=== PATIENT | female | born 2000 | race Caucasian/White ===

== ENCOUNTER 2021-12-27 12:59 | Emergency (ER) | payer BC, SELFPAY ==
[2021-12-27] VITALS (7 sets, daily range): BP systolic 106–122; BP diastolic 50–72; PULSE 77–88; RESP 14–18; TEMP 36.5; O2SAT 96–99; BMI 29.0
--- NOTE | 2021-12-27 13:22 | W.ED.ABDPA2 ---
HPI - Abdominal Pain General: Chief Complaint: Abdominal Pain Stated Complaint: abd pain Time Seen by Provider: 12/27/21 13:22 History of Present Illness: Ms. Green is a 21-year-old lady with history of known periumbilical hernia who presents to the emergency department due to abdominal pain. She reports longstanding history approximately 1 year of intermittent mild pain associated with hernia however over the past few hours this morning pain is more Constant. There is some radiation to the back. Quality is aching. Intensity is moderate. Course has persisted. Associated with nausea but no vomiting. Last bowel movement normal approximately 2 hours ago. No urinary symptoms. Last menstrual period last month. No other specific changes in health, exacerbating, or alleviating factors identified. Onset (ago): hour(s) Pain Consistency: constant Severity: moderate Quality: aching Context: history of similar episodes Related Data: Date of Last Menstrual Period: 12/17/21 Review of Systems General: Reports: 10 or more systems reviewed and unremarkable except in HPI and below PFSH ED PFSH: Medical History (Updated 01/06/22 @ 20:33 by Raymond Nicole MD) No significant past medical history Surgical History (Updated 01/06/22 @ 20:33 by Raymond Nicole MD) No significant past surgical history Female Reproductive History: Date of last menstrual period: 12/17/21 Physical Exam Const: COMMON NORMALS: alert GENERAL APPEARANCE: cooperative and well developed HENMT: COMMON NORMALS: normocephalic and atraumatic HEAD & SCALP: normocephalic and atraumatic Eye: COMMON NORMALS: conjunctivae normal CONJUNCTIVA: Yes conjunctivae normal SCLERA: sclerae normal Neck/C-Spine: COMMON NORMALS: supple GENERAL: Yes trachea midline Resp: COMMON NORMALS: normal respiratory effort EFFORT & INSPECTION: Yes able to speak in complete sentences Cardio: COMMON NORMALS: regular rate and regular rhythm RATE: regular rate RHYTHM: regular rhythm GI: COMMON NORMALS: Soft to palpation PALPATION: Yes Soft to palpation, Yes Tenderness to palpation present (GI), No Guarding due to palpation present (GI), No Rigid due to palpation and Yes Hernia present umbilical PERCUSSION: normal to percussion : EXTERNAL FEMALE EXAM: Yes Hernia present Extremity: GENERAL: Yes normal exam except as noted and No edema Neuro: COMMON NORMALS: moves all extremities SENSORIUM/ORIENTATION: Yes alert and No Orientation impaired Psych: COMMON NORMALS: mental status grossly normal and Normal thought process present THOUGHT PROCESS: Normal thought process present Course ED course: - Patient was seen and evaluated by me at bedside - Patient placed on cardiac monitors, IV access obtained - Initial evaluation notable for exam as above - Labs personally interpreted by me -Analgesia given - Labs notable for leukocytosis, normal hemoglobin. Metabolic panel without acute electrolyte derangement, mild transaminitis noted. Urinalysis not concerning for urinary tract infection. - Imaging notable for fat-containing umbilical and midline hernias without evidence of bowel obstruction or involvement. Additionally patient has cholelithiasis without definite wall thickening. There is also intra and extrahepatic ductal dilation. Ultrasound without evidence of cholecystitis however still shows ductal dilation and cholelithiasis. Given possibility of choledocholithiasis MRCP felt to be warranted. MRCP negative for biliary filling defect. - Discussed with general surgery who thinks that likely etiology is gallstones which are being passed through the biliary system without evidence of acute obstruction, no indication for hospitalization or acute surgical management, plan to have outpatient surgical follow-up -Patient already has a surgeon outside of our system who she wishes to follow-up with and previously planned surgery for hernias with - Upon serial reexamination after treatment the patient was improved - Based on patient history, evaluation, and testing as interpreted the most likely cause of the patient's condition is symptomatic cholelithiasis - The results of ED evaluation were discussed with the patient including prescriptions and/or symptomatic cares (if applicable) including appropriate and responsible use, followup plan, and return precautions. The patient verbalized understanding and felt safe for discharge. - Patient discharged in satisfactory condition. Note: Click bubbles or prepopulated coreas in note writing are used for assistance with data collection and billing and are inherently more limited than narrative and other text portions of this note. Please use narrative for additional clinical history and defer to narrative/free test for any case of contradictory information. If information appears in only free text or click bubble it should be considered present or absent as reported. Please contact note senior copywriter for clarifications of clinical information or contradictory information. MDM is a brief summary, contradictory or erroneous seeming information should be clarified and full note should be reviewed. Vital Signs: Vital signs: Vital Signs Temperature 97.7 F 12/27/21 13:07 Pulse Rate 88 12/27/21 19:00 Respiratory Rate 18 12/27/21 19:29 Blood Pressure 121/66 12/27/21 19:29 Pulse Oximetry 99 12/27/21 19:00 MDM - Abdominal Pain Medical Decision Making 21-year-old lady with history of umbilical hernia presenting with more constant pain concerning for incarceration. Patient found to have fat-containing hernias on CT. She does have evidence of cholelithiasis and further investigation required for biliary ductal dilation. No choledocholithiasis, patient may be passing small stones through the biliary system. Discussed with general surgery and outpatient follow-up is appropriate. Satisfactory for outpatient management with strict return precautions. Medical Records I reviewed the patient's medical records. Lab Data I reviewed the patient's lab results. : 12/27/21 13:32 12/27/21 14:31 Labs/Radiology: Radiology Impressions Abdomen/Pelvis CT 12/27/21 13:32 IMPRESSION: 1. Cholelithiasis without definite gallbladder wall thickening. There is intra and extrahepatic biliary ductal dilatation. No definite obstructive stone or lesion is appreciated. Recommend ultrasound to further assess. 2. Fat containing umbilical and midline anterior epigastric hernias. 3. Hepatomegaly. 4. Cardiomegaly. 5. Small simple left ovarian cyst. Abdomen Ultrasound 12/27/21 15:00 IMPRESSION: Cholelithiasis with ductal dilatation. No evidence for gallbladder wall thickening or pericholecystic fluid. Cholangiopancreatography MRI 12/27/21 16:48 IMPRESSION: There are multiple small stones in the gallbladder with intrahepatic and extrahepatic ductal dilatation. No biliary filling defects are seen. Laboratory Results WBC 16.1 10^3/uL (4.0-10.0) H 12/27/21 13:32 RBC 4.62 10^6/uL (4.1-5.3) 12/27/21 13:32 Hgb 13.8 g/dL (11.5-15.3) 12/27/21 13:32 Hct 42.5 % (37.0-47.0) 12/27/21 13:32 MCV 92.0 fl (81-99) 12/27/21 13:32 MCH 29.9 pg (28.0-34.0) 12/27/21 13:32 MCHC 32.5 g/dL (30.0-36.0) 12/27/21 13:32 RDW 14.4 % (12.1-15.1) 12/27/21 13:32 Plt Count 326 10^3/cmm (130-400) 12/27/21 13:32 MPV 10.7 fL (7.4-10.4) H 12/27/21 13:32 Neut % (Auto) 80.7 % 12/27/21 13:32 Lymph % (Auto) 12.9 % 12/27/21 13:32 [place] % (Auto) 5.2 % 12/27/21 13:32 Eos % (Auto) 0.4 % 12/27/21 13:32 Baso % (Auto) 0.4 % 12/27/21 13:32 Neut # (Auto) 12.97 10^3/uL (1.8-7.7) H 12/27/21 13:32 Lymph # (Auto) 2.1 10^3/uL (0.8-4.8) 12/27/21 13:32 [place] # (Auto) 0.8 10^3/uL (0.2-0.9) 12/27/21 13:32 Eos # (Auto) 0.1 10^3/uL (0.0-0.8) 12/27/21 13:32 Baso # (Auto) 0.1 10^3/uL (0.0-0.1) 12/27/21 13:32 Nucleated RBC % (auto) 0 % 12/27/21 13:32 Nucleated RBCs # 0.0 /100WBC 12/27/21 13:32 Sodium 136 mmol/L (136-145) 12/27/21 14:31 Potassium 3.9 mmol/L (3.5-5.1) 12/27/21 14:31 Chloride 102 mmol/L (98-107) 12/27/21 14:31 Carbon Dioxide 24 mmol/L (22-29) 12/27/21 14:31 Anion Gap 13.9 (5-19) 12/27/21 14:31 BUN 17 mg/dL (6-20) 12/27/21 14:31 Creatinine 0.4 mg/dL (0.5-0.9) L 12/27/21 14:31 GFR Calculation 197.8 mL/min (90-130) H 12/27/21 14:31 Glucose 115 mg/dL (65-115) 12/27/21 14:31 Calculated Osmolality 284 mOsm/kg (285-295) L 12/27/21 14:31 Calcium 8.1 mg/dL (8.5-10.5) L 12/27/21 14:31 Total Bilirubin 0.4 mg/dL (0.15-1.2) 12/27/21 14:31 AST 116 U/L (0-32) H 12/27/21 14:31 ALT 61 U/L (0-33) H 12/27/21 14:31 Alkaline Phosphatase 95 IU/L (35-105) 12/27/21 14:31 Total Protein 7.1 g/dL (6.6-8.7) 12/27/21 14:31 Albumin 3.8 g/dL (3.5-5.2) 12/27/21 14:31 Globulin 3.3 g/dL (1.3-4.6) 12/27/21 14:31 Lipase 26 U/L (13-60) 12/27/21 14:31 HCG, Qual Negative (Negative) 12/27/21 13:42 Urine Color Yellow (Yellow) 12/27/21 13:42 Urine Appearance Sl hazy (CLEAR) 12/27/21 13:42 Urine pH 7 (5-7) 12/27/21 13:42 Ur Specific [place] 1.010 (1.005-1.030) 12/27/21 13:42 Urine Protein Neg (Negative) 12/27/21 13:42 Urine Glucose (UA) Norm (Normal) 12/27/21 13:42 Urine Ketones Negative (Negative) 12/27/21 13:42 Urine Blood Neg (Negative) 12/27/21 13:42 Urine Nitrate Negative (Negative) 12/27/21 13:42 Urine Bilirubin Neg (Negative) 12/27/21 13:42 Urine Urobilinogen 1 mg/dL (Negative) H 12/27/21 13:42 Ur Leukocyte Esterase Negative (Negative) 12/27/21 13:42 Discharge Plan Discharge Patient Disposition: Home Clinical Impression: Abdominal pain, Cholelithiasis, Leukocytosis, Transaminitis, Dilation of common bile duct, Fatty liver, Hernia of abdominal wall Condition: Stable Prescriptions: New oxycodone 5 mg tablet 5 mg PO Q4H PRN (Reason: pain) Qty: 10 0RF ondansetron 4 mg tablet,disintegrating 4 mg PO TID PRN (Reason: nausea and vomiting) Qty: 15 0RF No Action sertraline 50 mg tablet 50 mg PO DAILY 0RF Discharge Orders: Discharge ED (Routine); Ordered 12/27/21 Ordered By: Raymond Nicole Discharge Diet: Advance as tolerated and Clear Liquid Discharge Activity: Increase activity as tolerated Patient Instructions: Gallstones (ED), Abdominal Pain (ED), Ventral Hernia (ED), Opioid Safety Activity Restrictions/Additional Instructions: Thank you for visiting the emergency department. You were seen and evaluated for abdominal pain. The exact cause of your symptoms is unclear as discussed. The hernia is currently only contained fat which can cause pain however do not require acute surgical intervention. You do have gallstones though no evidence of infection of the gallbladder (cholecystitis). You do have dilation of the ducts which is abnormal and may be related to passing stones. Please follow-up with your primary care provider and surgeon. I recommend repeat labs for reevaluation of elevated white blood cell count and elevated liver enzymes within 1 week. Please return to the emergency department for worsening symptoms, persistent nausea or vomiting, right upper quadrant pain, fevers, changes in ability to have bowel movements, or anything else that you are concerned about and feel needs emergency department evaluation. Coding Level of Care Code ED Linen Folder for Lilli Barrett
--- NOTE | 2021-12-27 13:32 | CTR_ITS ---
PROCEDURE INFORMATION: Exam: CT Abdomen And Pelvis With Contrast Exam date and time: 12/27/2021 2:06 PM Age: 21 years old Clinical indication: Generalized abdominal pain. Periumbilical hernia with constant pain for 1 day. TECHNIQUE: Imaging protocol: Computed tomography of the abdomen and pelvis with contrast. Radiation optimization: All CT scans at this facility use at least one of these dose optimization techniques: automated exposure control; mA and/or kV adjustment per patient size (includes targeted exams where dose is matched to clinical indication); or iterative reconstruction. Contrast material: OMNI 350; Contrast volume: 75 ml; Contrast route: INTRAVENOUS (IV); COMPARISON: No relevant prior studies available. RADIATION DOSE METRICS: Total DLP (mGy-cm): 1512.86 FINDINGS: Lungs: The lung bases are unremarkable. The heart is enlarged. No pericardial effusion. No hiatal hernia. Liver: The liver is enlarged measuring 19.4 cm. No suspicious hepatic lesion is identified. Gallbladder and bile ducts: There is intra and extrahepatic biliary ductal dilatation. Cholelithiasis without definite gallbladder wall thickening. The common bile duct is dilated measuring 1.2 cm. No definite obstructive stone or lesion is appreciated. Pancreas: The pancreas is unremarkable. Spleen: The spleen is unremarkable. Adrenal glands: The adrenal glands are unremarkable. Kidneys and ureters: The kidneys are unremarkable. Stomach and bowel: The stomach and small bowel are unremarkable. The colon is unremarkable. Appendix: The appendix is unremarkable. Intraperitoneal space: No free intraperitoneal air is seen. Vasculature: No abdominal aortic aneurysm. Lymph nodes: No retroperitoneal lymphadenopathy. Urinary bladder: The bladder is largely decompressed. Reproductive: Simple left ovarian cysts measuring up to 1.5 cm. Bones/joints: No acute fracture is seen. Soft tissues: Fat containing umbilical and midline anterior epigastric hernias. CT/CT abdomen pelvis w con* [id number] IMPRESSION: 1. Cholelithiasis without definite gallbladder wall thickening. There is intra and extrahepatic biliary ductal dilatation. No definite obstructive stone or lesion is appreciated. Recommend ultrasound to further assess. 2. Fat containing umbilical and midline anterior epigastric hernias. 3. Hepatomegaly. 4. Cardiomegaly. 5. Small simple left ovarian cyst.
[2021-12-27 13:50] LABS: Basophils # 0.1 10^3/uL (0.0-0.1); Basophils % 0.4 %; Eosinophils # 0.1 10^3/uL (0.0-0.8); Eosinophils % 0.4 %; Hematocrit 42.5 % (37.0-47.0); Hemoglobin 13.8 g/dL (11.5-15.3); Lymphocytes # 2.1 10^3/uL (0.8-4.8); Lymphocytes % 12.9 %; Mean Corpuscular HGB Conc 32.5 g/dL (30.0-36.0); Mean Corpuscular Hemoglobin 29.9 pg (28.0-34.0); Mean Platelet Volume 10.7 fL (7.4-10.4); Monocytes # 0.8 10^3/uL (0.2-0.9); Monocytes % 5.2 %; Neutrophils # 12.97 10^3/uL (1.8-7.7); Neutrophils % 80.7 %; Nucleated Red Blood Cells % 0 %; Platelet Count 326 10^3/cmm (130-400); Red Blood Count 4.62 10^6/uL (4.1-5.3); Red Cell Distribution Width 14.4 % (12.1-15.1); White Blood Count 16.1 10^3/uL (4.0-10.0)
[2021-12-27 13:52] LABS: HCG Qualitative Urine. Negative (Negative)
[2021-12-27] MEDS: iohexol 350 mg/mL 100 mL Btl IV (14:05)
[2021-12-27 14:28] LABS: Add Urine Microscopic? NO; Charge for UA Resulting for Rev
[2021-12-27 14:36] LABS: Bilirubin Urine Neg (Negative); Blood Urine Neg (Negative); Glucose Urine UA Norm (Normal); Ketones Urine Negative (Negative); Leukocyte Esterase Urine Negative (Negative); Nitrate Urine Negative (Negative); Protein Urine Neg (Negative); Urine Appearance SL Hazy (CLEAR); Urine Color Yellow (Yellow); Urobilinogen Urine 1 mg/dL (Negative); pH Urine 7 (5-7)
--- NOTE | 2021-12-27 15:00 | USR_ITS ---
PROCEDURE INFORMATION: Exam: US Abdomen, Limited; Right Upper Quadrant Exam date and time: 12/27/2021 3:31 PM Age: 21 years old Clinical indication: Abdominal pain; Acute; Additional info: Ruq, abnormal CT appearance, ? choledoco TECHNIQUE: Imaging protocol: Real time ultrasound of the abdomen with image documentation. Limited exam focused on the right upper quadrant. COMPARISON: CT abdomen pelvis w con* [id number] 12/27/2021 2:06 PM FINDINGS: Liver: Normal. No masses. Gallbladder: Negative sonographic Finley sign. Multiple small gallstones. Gallbladder wall is normal in thickness measuring 1.5 mm. Biliary ducts: Common bile duct is dilated measuring 8.4 mm. Mild intrahepatic ductal dilatation. Pancreas: Limited visualization of the pancreas secondary to overlying bowel gas. Visualized portions of the pancreas are within normal limits. Right kidney: Normal. No mass. No hydronephrosis. US/US abdomen limited [id number] IMPRESSION: Cholelithiasis with ductal dilatation. No evidence for gallbladder wall thickening or pericholecystic fluid.
[2021-12-27 15:01] LABS: Alanine Aminotransferase 61 U/L (0-33); Albumin Level 3.8 g/dL (3.5-5.2); Alkaline Phosphatase 95 IU/L (35-105); Blood Urea Nitrogen 17 mg/dL (6-20); Calcium 8.1 mg/dL (8.5-10.5); Carbon Dioxide 24 mmol/L (22-29); Chloride 102 mmol/L (98-107); Globulin 3.3 g/dL (1.3-4.6); Glomerular Filtration Rate 197.8 mL/min (90-130); Glucose 115 mg/dL (65-115); Lipase 26 U/L (13-60); Osmolality Calculated 284 mOsm/kg (285-295); Sodium 136 mmol/L (136-145); Total Bilirubin 0.4 mg/dL (0.15-1.2); Total Protein 7.1 g/dL (6.6-8.7)
[2021-12-27 15:07] LABS: Anion Gap 13.9 (5-19); Potassium 3.9 mmol/L (3.5-5.1)
[2021-12-27 15:08] LABS: Aspartate Amino Transferase 116 U/L (0-32)
[2021-12-27] MEDS: morphine 4 mg/mL SDV 1 mL IVP ×2 (15:13→19:28)
--- NOTE | 2021-12-27 16:48 | MRR_ITS ---
PROCEDURE INFORMATION: Exam: MR Abdomen Without Contrast Exam date and time: 12/27/2021 5:43 PM Age: 21 years old Clinical indication: Abdominal pain; Additional info: Abd pain, leukocytosis, transaminitis, ductal dilation TECHNIQUE: Imaging protocol: Magnetic resonance imaging of the abdomen without contrast. COMPARISON: CT abdomen pelvis w con* [id number] 12/27/2021 2:06 PM FINDINGS: Liver: There is intrahepatic and extrahepatic ductal dilatation. Common bile duct measures 8.6 mm. Gallbladder and bile ducts: There are multiple small stones in the gallbladder and in the gallbladder neck. No stones are seen within the common bile duct. Flow artifact is seen in the region of the common bile duct. Gallbladder wall is normal in thickness measuring 2 mm. Pancreas: Unremarkable. No ductal dilation. Spleen: Unremarkable. No splenomegaly. Adrenal glands: Unremarkable. No mass. Kidneys and ureters: Unremarkable. No solid mass. No hydronephrosis. Stomach and bowel: Visualized stomach and intestines are unremarkable. Intraperitoneal space: No free fluid. Vasculature: No abdominal aortic aneurysm. Bones/joints: Unremarkable. Soft tissues: Unremarkable. MR/MR MRCP [id number] IMPRESSION: There are multiple small stones in the gallbladder with intrahepatic and extrahepatic ductal dilatation. No biliary filling defects are seen.
--- NOTE | 2021-12-27 17:35 | PC.NURSE ---
Pt left to MRI via wheelchair @[id number]
--- NOTE | 2021-12-27 18:21 | PC.NURSE ---
Pt returned from MRI 181. Pt resting in bed with call light within reach.
== END 2021-12-27 19:31 | disposition home or self-care (01) ==
PROVIDERS: Emergency Provider Emergency Medicine
DX: K80.20 Calculus of gallbladder without cholecystitis without obstruction (principal); D72.829 Elevated white blood cell count, unspecified; R74.01 Elevation of levels of liver transaminase levels; K76.0 Fatty (change of) liver, not elsewhere classified; K43.9 Ventral hernia without obstruction or gangrene; K83.8 Other specified diseases of biliary tract
CPT/HCPCS: 74177; 74181; 76705; 80053; 81003; 81025; 83690; 85025; 96374; 96376; 99284; J2270; Q9967